=== PATIENT | male | born 1990 | race Hispanic/Latino ===

== ENCOUNTER 2021-08-31 12:15 | Emergency (ER) | payer SELFPAY ==
[~2021-08-31] VITALS: Ht 170.2 cm; Wt 145.0 kg
[2021-08-31] VITALS (20 sets, daily range): BP systolic 118–163; BP diastolic 65–93
[2021-08-31 12:42] LABS: HEMATOCRIT 40.4 % (39.0-50.0); HEMOGLOBIN 13.3 g/dl (14.0-18.0); IMMATURE GRANULOCYTES 2.1 % (0.0-5.0); MEAN CORPUSCULAR HGB 29.3 pG CALC (26.0-32.0); MEAN CORPUSCULAR HGB CONC 32.9 g/dL CAL (32.0-36.0); NEUT# 4.79 thou/uL (1.82-7.42); RED BLOOD COUNT 4.54 mill/uL (4.70-6.10)
[2021-08-31 13:09] LABS: ALBUMIN 3.8 g/dL (3.2-5.0); ALKALINE PHOSPHATASE 71 u/l (38-126); ANION GAP 11 (6-22 (CALC)); BILIRUBIN, TOTAL 0.4 mg/dL (0.0-1.4); BUN 12 mg/dL (9-20); BUN/CREATININE RATIO 16 (12-20 (CALC)); CARBON DIOXIDE 24 mmol/l (22-30); CHLORIDE 107 mmol/l (95-108); CPK 97 u/l (52-200); CREATININE 0.8 mg/dL (0.7-1.3); GFR FOR AFR.AMER. > 60 ML/MIN (>=60 (CALC)); GFR OTHER RACES > 60 ML/MIN (>=60 (CALC)); POTASSIUM 3.7 mmol/l (3.5-5.1); SGOT/AST 58 u/l (17-59); SODIUM 138 mmol/l (137-146); TOTAL PROTEIN 7.2 g/dL (6.3-8.2)
[2021-08-31 16:43] LABS: URINE BILIRUBIN - DIPSTICK NEGATIVE (NEGATIVE); URINE BLOOD DIPSTICK LARGE (NEGATIVE); URINE COLOR YELLOW; URINE GLUCOSE - DIPSTICK NEGATIVE (NEGATIVE); URINE KETONE NEGATIVE (NEGATIVE); URINE LEUK ESTERASE NEGATIVE (NEGATIVE); URINE NITRITE - DIPSTICK NEGATIVE (Negative); URINE PH 6.5 (4.5-8.0); URINE PROTEIN - DIPSTICK NEGATIVE (NEG-TRACE); URINE SPECIFIC GRAVITY <=1.005
[2021-08-31] MEDS ORDERED: NAPROXEN500 MG PO (17:12)
[2021-08-31] MEDS ORDERED: FLEXERIL5 M1 PO (17:12)
== END 2021-08-31 17:26 | disposition home or self-care (01) | DRG 640 ==
LOC: ED 12:15
PROVIDERS: Family Medicine
DX: E86.0 Dehydration (principal); R31.9 Hematuria, unspecified; R07.89 Other chest pain; U07.1 COVID-19; X30.XXXA Exposure to excessive natural heat, initial encounter
CPT/HCPCS: Q9967